=== PATIENT | male | born 1960 | race Caucasian/White ===

== ENCOUNTER 2018-11-18 17:55 | Observation (INO) | payer SELFPAY ==
[2018-11-18] MEDS ORDERED: CEFAZOLIN/SWI 1gm 2 GM/20 ML SYR ONE (18:20)
[2018-11-18] MEDS ORDERED: NA CHLORIDE 0.9% 1,000 ML ONE ×2 (18:25→19:00)
[2018-11-18 18:47] LABS: Absolute Lymphocytes (CBC) 1.1 K/uL (0.7-4.9); Basophils % 0.7 % (0-1.3); Hematocrit 42.8 % (39.6-49.0); Lymphocytes % 12.6 % (15.3-44.8); MPV 8.7 fL (7.6-11.3); RBC Red Blood Cell Count 4.84 M/uL (4.33-5.43)
[2018-11-18 18:51] LABS: Protime INR 1.01
--- NOTE | 2018-11-18 19:02 | RAD REPORT ---
EXAM DESCRIPTION: RAD - Foot Right 3 View - 11/18/2018 6:44 pm CLINICAL HISTORY: laceration injury COMPARISON: <Comparisons> FINDINGS: Comminuted fractures seen involving the proximal phalanx of the second toe in the middle p halanx of the third toe with laceration present. No foreign body visible.
[2018-11-18] MEDS ORDERED: HYDROMORPHONE HCL 1 MG/ML INJ ONE (19:23)
--- NOTE | 2018-11-18 19:28 | EDPHYS ---
Physician Documentation [facility] Name: Elvin Farnsworth Age: 58 yrs Sex: Male : 1960 Arrival Date: 11/18/2018 Time: 18:08 Bed 30 Private MD: ED Physician Gama Mckeon HPI: 11/18 18:20 This 58 yrs old Male presents to ER via EMS with complaints of Foot Injury. cp 18:20 The patient presents with an injury, a laceration. The complaints affect the dorsum of cp right foot. Context: Patient reports he placed circular saw on ground near foot that turned on and cut second and third toes. Onset: The symptoms/episode began/occurred today, about 1500. Treatment prior to arrival includes: wound dressed. Patient reports tetanus up to date within last 1-2 years. Historical: - Allergies: 18:33 No Known Allergies; tr5 - Home Meds: 18:33 None [Active]; tr5 - PMHx: 18:33 Hypertension; tr5 - Immunization history:: Adult Immunizations up to date, Last tetanus immunization: unknown. - Social history:: Smoking status: Patient uses tobacco products, chewing tobacco, Patient uses street drugs, Methamphetamine (Meth). - Ebola Screening: : Patient negative for fever greater than or equal to 101.5 degrees Fahrenheit, and additional compatible Ebola Virus Disease symptoms. ROS: 18:30 Constitutional: Negative for body aches, chills, fever, poor PO intake. cp 18:30 Eyes: Negative for injury, pain, redness, and discharge. cp 18:30 ENT: Negative for drainage from ear(s), ear pain, sore throat, difficulty swallowing, difficulty handling secretions. 18:30 Cardiovascular: Negative for chest pain, palpitations. 18:30 Respiratory: Negative for cough, shortness of breath, wheezing. 18:30 Abdomen/GI: Negative for abdominal pain, vomiting, diarrhea, constipation. 18:30 Back: Negative for pain at rest, pain with movement. 18:30 Skin: Positive for discoloration, laceration(s), of the dorsum of right foot. 18:30 Neuro: Negative for altered mental status, headache, weakness. 18:30 All other systems are negative. Exam: 18:35 Constitutional: The patient appears in no acute distress, alert, awake, cp non-diaphoretic, non-toxic, well developed, well nourished. 18:35 Head/Face: Normocephalic, atraumatic. cp 18:35 Eyes: Periorbital structures: appear normal, Conjunctiva: normal, no exudate, no injection, Lids and lashes: appear normal, bilaterally. 18:35 ENT: External ear(s): are unremarkable, Nose: is normal, Mouth: is normal, Posterior pharynx: is normal, airway is patent, no erythema, no exudate. 18:35 Neck: ROM/movement: is normal, is supple, without pain, no range of motions limitations. 18:35 Chest/axilla: Inspection: normal, Palpation: is normal, no crepitus, no tenderness. 18:35 Cardiovascular: Rate: normal, Rhythm: regular, Heart sounds: murmur, not appreciated, Edema: is not appreciated, JVD: is not appreciated. 18:35 Respiratory: the patient does not display signs of respiratory distress, Respirations: normal, no use of accessory muscles, no retractions, no splinting, no tachypnea, labored breathing, is not present, Breath sounds: are clear throughout, no decreased breath sounds, no stridor, no wheezing. 18:35 Abdomen/GI: Inspection: abdomen appears normal, Bowel sounds: active, all quadrants, Palpation: abdomen is soft and non-tender, in all quadrants, voluntary guarding, is not appreciated, involuntary guarding, is not appreciated, no appreciated organomegaly. 18:35 Musculoskeletal/extremity: Extremities: grossly normal except: noted in the dorsum of right foot: laceration, pain, tenderness, noted across right second and third toes, Pulses: noted to be 2+ in the right dorsalis pedis artery, Perfusion: the extremity is dusky, noted to have sluggish capillary refill, middle and distal phalanx right third toe, the middle and distal phalanx right third toe decreased sensation. 18:35 Neuro: Orientation: to person, place \T\ time. Mentation: is normal. 19:29 ECG was reviewed by the Attending Physician. cp Vital Signs: 16:10 BP 156 / 20; Pulse 75; Resp 16; Temp 98.2(O); Pulse Ox 100% on R/A; Weight 79.38 kg; tr5 Height 5 ft. 5 in. (165.10 cm); 17:00 BP 156 / 112; Pulse 76; Resp 17; Pulse Ox 97% on R/A; tr5 18:00 BP 156 / 120; Pulse 75; Resp 16; Pulse Ox 97% on R/A; tr5 19:14 BP 153 / 94; Pulse 75; Resp 16; Pulse Ox 100% on R/A; tr5 16:10 Body Mass Index 29.12 (79.38 kg, 165.10 cm) tr5 MDM: 18:10 Patient medically screened. cp 18:30 Differential diagnosis: dislocation, open fracture, closed fracture, contusion. cp 19:00 Data reviewed: vital signs, nurses notes, lab test result(s), radiologic studies, plain cp films. 19:00 Test interpretation: by ED physician or midlevel provider: xrays of right foot show cp comminuted fractures of proximal phalanx right second toe and middle phalanx of right third toe. Counseling: I had a detailed discussion with the patient and/or guardian regarding: the historical points, exam findings, and any diagnostic results supporting the discharge/admit diagnosis, radiology results, the need for further work-up and treatment in the hospital. 19:03 Physician consultation: Alvaro Ponce MD was called at 18:55, was contacted at 18:55, regarding patient's condition, and will see patient in ED, shortly, requests OR staff and power house engineer be notified concerning patient and injuries. 19:31 ED course: VSS. Patient examined by DR Mckeon who concurs with foreshortening and cp partial amputation of right third toe. 11/18 18:19 Order name: Basic Metabolic Panel; Complete Time: 16:48 11/18 18:19 Order name: CBC with Diff; Complete Time: 18:54 11/18 18:55 Interpretation: Normal except: LYM% 12.6. 11/18 18:19 Order name: Creatinine for Radiology; Complete Time: 16:48 11/18 18:19 Order name: Type And Screen; Complete Time: 16:48 11/18 18:19 Order name: PT-INR; Complete Time: 18:54 11/18 18:19 Order name: Ptt, Activated; Complete Time: 16:48 11/18 18:19 Order name: Labs collected and sent; Complete Time: 18:28 11/18 18:19 Order name: XRAY Foot RIGHT 3 View; Complete Time: 16:48 cp 11/18 18:54 Order name: EKG; Complete Time: 18:55 cp 11/18 18:54 Order name: EKG - Nurse/Tech; Complete Time: 19:14 cp EC:29 Rate is 68 beats/min. Rhythm is regular. MN interval is normal. QRS interval is normal. cp QT interval is normal. Interpreted by me. Reviewed by me. Administered Medications: 18:28 Drug: Ancef 2 grams Route: IVPB; Infused Over: 30 mins; Site: left antecubital; 19:43 Follow up: Response: No adverse reaction tr5 11/19 01:08 Follow up: Response: No adverse reaction; IV Status: Completed infusion; IV Intake: tr5 100ml 11/18 18:28 Drug: NS 0.9% 1000 ml Route: IV; Rate: 1 bolus; Site: left antecubital; 19:43 Follow up: IV Status: Completed infusion; IV Intake: 1000ml tr5 19:24 Drug: Dilaudid 1 mg {Note: RAAS:0.} Route: IVP; Site: left forearm; tr5 19:42 Follow up: Response: Pain is decreased tr5 19:42 Drug: NS 0.9% 1000 ml Route: IV; Rate: 1 bolus; Site: left forearm; tr5 19:43 Follow up: IV Status: Infusion continued upon transfer tr5 Disposition: 11/18/18 19:26 Hospitalization ordered by Alvaro Ponce for Observation. Preliminary diagnosis are Displaced fracture of medial phalanx of right lesser toe(s) - open, third toe, Displaced fracture of proximal phalanx of right lesser toe(s) - open, second toe. - Bed requested for Operating Room. - Status is Observation. tr5 - Condition is Stable. - Problem is new. - Symptoms have improved. UTI on Admission? No Addendum: 11/19/2018 20:55 Co-signature as Attending Physician, Ankit Villalba MD. r n Signatures: Dispatcher [employer] EDAnkit Clancy MD MD rn Page, Corey, PA PA cp Habalo, Winsy Nav Rizvi RN RN tr5 Corrections: (The following items were deleted from the chart) 11/18 19:29 19:26 Hospitalization Ordered by Alvaro Ponce MD for Observation. Preliminary cp diagnosis is Displaced fracture of medial phalanx of right lesser toe(s) - open, third toe; Displaced fracture of proximal phalanx of right lesser toe(s) - open, second toe. Bed requested for Telemetry/MedSurg (observation). Status is Observation. Condition is Stable. Problem is new. Symptoms have improved. UTI on Admission? No. cp 19:46 19:29 11/18/2018 19:26 Hospitalization Ordered by Alvaro Ponce MD for Observation. tr5 Preliminary diagnosis is Displaced fracture of medial phalanx of right lesser toe(s) - open, third toe; Displaced fracture of proximal phalanx of right lesser toe(s) - open, second toe. Bed requested for Operating Room. Status is Observation. Condition is Stable. Problem is new. Symptoms have improved. UTI on Admission? No. cp
--- NOTE | 2018-11-18 19:28 | ER ---
Nurse's Notes [facility] Name: Elvin Farnsworth Age: 58 yrs Sex: Male : 1960 Arrival Date: 11/18/2018 Time: 18:08 Bed 30 Private MD: Diagnosis: Displaced fracture of medial phalanx of right lesser toe(s)-open, third toe;Displaced fracture of proximal phalanx of right lesser toe(s)-open, second toe Presentation: 11/18 18:00 Presenting complaint: EMS states: pt was using his skill saw and dropped it on his R tr5 foot. He has cuts to his second and third toes. He was give a Camilla 10 at 1545, a dose of dilaudid at 1640 and another dose of dilauted at 1710. Pt reports he does meth and last used this morning. He has a 20 G to L AC. Transition of care: patient was not received from another setting of care. Onset of symptoms was November 18, 2018. Risk Assessment: Do you want to hurt yourself or someone else? Patient reports no desire to harm self or others. Initial Sepsis Screen: Does the patient meet any 2 criteria? No. Patient's initial sepsis screen is negative. Does the patient have a suspected source of infection? No. Patient's initial sepsis screen is negative. Care prior to arrival: Medication(s) given: Camilla 10 X1 and Dilaudid X2. 18:00 Method Of Arrival: EMS: [facility] tr5 18:00 Acuity: LUCINA 2 tr5 Triage Assessment: 19:45 Injury Description: Laceration. tr5 Historical: - Allergies: 18:33 No Known Allergies; tr5 - Home Meds: 18:33 None [Active]; tr5 - PMHx: 18:33 Hypertension; tr5 - Immunization history:: Adult Immunizations up to date, Last tetanus immunization: unknown. - Social history:: Smoking status: Patient uses tobacco products, chewing tobacco, Patient uses street drugs, Methamphetamine (Meth). - Ebola Screening: : Patient negative for fever greater than or equal to 101.5 degrees Fahrenheit, and additional compatible Ebola Virus Disease symptoms. Screenin:10 Abuse screen: Denies threats or abuse. Nutritional screening: No deficits noted. tr5 Tuberculosis screening: No symptoms or risk factors identified. Fall Risk None identified. Assessment: 18:10 General: Appears uncomfortable, Behavior is calm, cooperative, appropriate for age. tr5 Pain: Complains of pain in right foot and right leg Pain does not radiate. Pain currently is 7 out of 10 on a pain scale. Quality of pain is described as aching, Pain began 30 min ago. Neuro: Level of Consciousness is awake, alert, obeys commands, Oriented to person, place, time, Heavy Lift Rigger are equal bilaterally Moves all extremities. Cardiovascular: Heart tones present Capillary refill < 3 seconds Pulses are all present. Respiratory: Airway is patent Respiratory effort is even, unlabored, Respiratory pattern is regular, symmetrical. GI: No signs and/or symptoms were reported involving the gastrointestinal system. : No signs and/or symptoms were reported regarding the genitourinary system. EENT: No signs and/or symptoms were reported regarding the EENT system. Derm: Skin is dry, Skin is normal, Skin temperature is warm Cuts to second and third toes of R foot. Musculoskeletal: Capillary refill < 3 seconds, Range of motion: intact in all extremities. 19:16 Reassessment: Patient appears in no apparent distress at this time. Patient and/or tr5 family updated on plan of care and expected duration. Pain level reassessed. Patient is alert, oriented x 3, equal unlabored respirations, skin warm/dry/pink. Vital Signs: 16:10 BP 156 / 20; Pulse 75; Resp 16; Temp 98.2(O); Pulse Ox 100% on R/A; Weight 79.38 kg; tr5 Height 5 ft. 5 in. (165.10 cm); 17:00 BP 156 / 112; Pulse 76; Resp 17; Pulse Ox 97% on R/A; tr5 18:00 BP 156 / 120; Pulse 75; Resp 16; Pulse Ox 97% on R/A; tr5 19:14 BP 153 / 94; Pulse 75; Resp 16; Pulse Ox 100% on R/A; tr5 16:10 Body Mass Index 29.12 (79.38 kg, 165.10 cm) tr5 ED Course: 16:10 Arm band placed on. tr5 17:15 T\T\S collected, blood band applied to patient. jp3 18:08 Patient arrived in ED. am2 18:08 Gama Wetzel PA is PHCP. cp 18:08 Ankit Villalba MD is Attending Physician. cp 18:10 Bed in low position. Call light in reach. Side rails up X 1. Pulse ox on. NIBP on. tr5 18:10 Inserted saline lock: 20 gauge in right forearm, using aseptic technique. tr5 18:21 Nav Rizvi, RN is Primary Nurse. tr5 18:32 Triage completed. tr5 18:44 XRAY Foot RIGHT 3 View In Process Unspecified. EDIN 19:23 Alvaro Ponce MD is Hospitalizing Provider. cp 19:30 Attending Physician role handed off by Ankit Villalba MD cha 19:30 Gama Mckeon MD is Attending Physician. [facility] 19:45 No provider procedures requiring assistance completed. Patient admitted, IV remains in tr5 place. Administered Medications: 18:28 Drug: Ancef 2 grams Route: IVPB; Infused Over: 30 mins; Site: left antecubital; 19:43 Follow up: Response: No adverse reaction tr5 11/19 01:08 Follow up: Response: No adverse reaction; IV Status: Completed infusion; IV Intake: tr5 100ml 11/18 18:28 Drug: NS 0.9% 1000 ml Route: IV; Rate: 1 bolus; Site: left antecubital; 19:43 Follow up: IV Status: Completed infusion; IV Intake: 1000ml tr5 19:24 Drug: Dilaudid 1 mg {Note: RAAS:0.} Route: IVP; Site: left forearm; tr5 19:42 Follow up: Response: Pain is decreased tr5 19:42 Drug: NS 0.9% 1000 ml Route: IV; Rate: 1 bolus; Site: left forearm; tr5 19:43 Follow up: IV Status: Infusion continued upon transfer tr5 Intake: 19:43 IV: 1000ml; Total: 1000ml. tr5 11/19 01:08 IV: 100ml; Total: 1100ml. tr5 Outcome: 11/18 19:26 Decision to Hospitalize by Provider. cp 19:45 Admitted to OR accompanied by nurse, via stretcher, with chart. tr5 19:45 Condition: stable 19:45 Instructed on the need for admit. 19:46 Patient left the ED. tr5 Signatures: Dispatcher [employer] EDIN Mike, Gama, Gama Ponce MD, cha, PA PA cp Moreno, Amanda am2 Tremaine Roberson Jacob jp3 Nav Rizvi, RN RN tr5
[2018-11-18] MEDS ORDERED: NA CIT/CITRIC AC 30 ML ORAL UDC ONE (19:52)
[2018-11-18] MEDS ORDERED: PROPOFOL 200 MG/20 ML VIAL IV ONE (19:57)
[2018-11-18] MEDS ORDERED: FENTANYL CITR 100 MCG/2 ML ONE (19:58)
[2018-11-18] MEDS ORDERED: LIDOCAINE 1% MPF 5 ML VIAL ONE (19:58)
[2018-11-18] MEDS ORDERED: MIDAZOLAM HCL 2 MG/2 ML INJ ONE (19:58)
[2018-11-18] MEDS ORDERED: ONDANSETRON 4 MG/2 ML VIAL ONE (20:02)
[2018-11-18] MEDS ORDERED: KETOROLAC 30 MG/ML INJ ONE (20:41)
--- NOTE | 2018-11-18 21:26 | P.BOP ---
Preoperative diagnosis: open fx 2nd toe, near amputaion of 3rd toe, saw laceration Postoperative diagnosis: same Primary procedure: Sharp I&D lacration/open fx, completion of amputaion 3rd toe Estimated blood loss: 10 ccs Anesthesia: General Complications: None Transferred to: Recovery Room Condition: Good
[2018-11-18] MEDS ORDERED: Ringers Lactate 1,000 ML IV ONE (21:29)
[2018-11-18] MEDS: MEPERIDINE HCL 25 MG/0.5 ML ONE ×2 (21:45→21:55)
[2018-11-18] MEDS ORDERED: MORPHINE 2 MG/ML SYR IV PRN (22:27)
[2018-11-18] MEDS ORDERED: HYDROCODONE/APAP 5/325 MG TAB PO PRN ×2 (22:32→22:33)
[2018-11-18 22:33] VITALS: BMI 32.1
[2018-11-19] MEDS ORDERED: CEFAZOLIN/NS 1gm 1 GM/50 ML BAG IVPB SCH (01:00)
[2018-11-19 01:08] VITALS: O2SAT 98
[2018-11-19] MEDS ORDERED: CEFAZOLIN/SWI 1gm 1 GM/10 ML SYR ONE (01:13)
[2018-11-19] MEDS: PREGABALIN 75 MG CAP PO SCH ×2 (01:59→09:57)
--- NOTE | 2018-11-19 05:38 | HP ---
Date of Admission: 11/18/2018 History Of Present Illness: This is my first time seeing this patient to my knowledge. He is a 58-y ear-old gentleman who apparently was working with a circular saw today, placed it on the ground, unfo rtunately traveled over his right foot. Despite having shoe on, he had significant pain and problems . He went to an outside facility where he was ruled out for other injuries; however, x-rays were rosa elena en as well as examination which demonstrates loss of a significant amount of the middle phalanx, the third, as well as a fracture of the second. On physical examination, he has a relatively oblique laceration which traverses over the second and t hird toes, directly in line with the fractures. Fortunately, he has not impacted his great toe. Past Medical History: Significant for hypertension. Allergies: HE HAS NO ALLERGIES. Medications: He has no medications listed. Social History: He does use smokeless tobacco. Physical Examination: Benign. On physical examination of his right foot, he does have a relatively long diagonal laceratio n which goes over the dorsum of the foot. The third toe appears to be extremely dusky. He does not appear to have any blood flow to the distal tip. Assessment: A 58-year-old man now with an open fracture of the second and third toe, as well as a la ceration over the dorsum of the foot. DP examination is difficult, but his second extensor tendon is presumed lacerated. All risks, benefits, and alternatives to procedure have been discussed with him and he states he understands things presented and will move forward to going to the operating room f or irrigation and debridement under general anesthesia with exploration. It may be possible that we would repair the extensor tendon of the second toe. However, this may be too disrupted by the circul ar saw. I did discuss with him that apparently, the third toe has no significant vascularity and pro bably the best course of action would be debridement of the bony fragments and skeletal shortening wi th partial amputation of the toe, losing the toe tip, but leaving as much that is possible to avoid d rift if possible. He says that he understands things as presented. GRIFFIN Voice ID: [id number]
[2018-11-19] MEDS ORDERED: METOPROLOL TAR 25 MG TAB PO SCH (06:00)
[2018-11-19 06:14] LABS: Urine Appearance CLEAR; Urine Bilirubin NEGATIVE (NEG); Urine Blood NEGATIVE (NEG); Urine Color YELLOW; Urine Glucose TRACE (NEG); Urine Protein NEGATIVE (NEG); Urine Specific Gravity >=1.030 (1.005-1.030); Urine Urobilinogen 0.2 mg/dL (0.2-1.0)
[2018-11-19 06:37] LABS: Urine Microscopic Reflex ORDER UMIC
[2018-11-19 06:44] LABS: Urine Bacteria <20 /HPF (NONE SEEN); Urine RBC <5 /HPF (NONE SEEN)
[2018-11-19 06:45] LABS: Urine Culture Reflex Order REFLEXED; Urine Mucus 1+ /HPF (NONE SEEN)
--- NOTE | 2018-11-19 07:16 | OP ---
Date of Procedure: 11/18/2018 Surgeon: Alvaro Ponce MD Preoperative Diagnosis: Right foot table saw injury with open fractures of the second and third toe, the third toe being a near-complete amputation. Postoperative Diagnosis: Right foot table saw injury with open fractures of the second and third toe , the third toe being a near-complete amputation. Procedure Performed: 1.Right foot irrigation and debridement of second toe open fracture with closure. 2.Completion of amputation, partial third toe. Estimated Blood Loss: 10 mL. Complications: No complications. Specimen: The toe was sent to pathology. Indications For Operation: Mr. Farnsworth is a 58-year-old male, who unfortunately was injured with a tab le saw that ran over his foot. He was seen at an outside facility where he was ruled out for other i njuries; however, he was transferred from that facility to our facility, seen in the emergency room w here he was again ruled out for other injuries and x-rays were reviewed, which revealed a fracture of the second toe. Also seen is a bone loss and fracture of the third toe. He has a linear laceration in an oblique fashion, which proceed over the second down into the inner web space and over the thir d. On examination, he obviously does have open fractures. The third toe appears avascular and appea rs to be held on simply by some volar skin. The second toe does appear to be vascularized; however, this table saw injury appears to go down to bone. It does appear that the extensor tendon is comprom ised, also may have some degree of nerve compromise. Description Of Procedure: The patient was taken to the operating room and placed in supine position. General anesthesia was obtained by the staff. Following this, a well-padded tourniquet was placed on superior right thigh. Right lower extremity was then prepped and draped in usual sterile fashion with the exception of the use of non-iodine containing liquid scrub as used for open injuries. Follo wing this, the leg was then elevated, but not exsanguinated. Tourniquet was raised. Some light irri gation was used and attention was first turned to the third toe. The third toe was held on only by a volar skin and the tip appears to be completely avascular. Once this is completed, establishing a m ore less [place] appearance with a slightly longer plantar flap, attention was then turned to the s econd toe. The second toe had multiple small pieces of bone, which were debrided as well as some oth er foreign material. The extensor tendon is examined. It does appear to be a segmental loss with we ll over a quarter inch of the extensor tendon appearing to be cut, therefore decision was made to sim ply debride this rather than try to repair the extensor tendon. The foot was then copiously irrigate d with 2 L of sterile saline with intermittent debridement for foreign material. Following this, the laceration including the amputated toe was then closed using nylon sutures. The patient was then pl aced in a well-padded sterile dressing, awakened and taken to the recovery room in good condition. GRIFFIN Voice ID: [id number] Report ID: [id number]
--- NOTE | 2018-11-19 08:21 | P.CNS ---
Date of Consult: 11/18/18 Reason for Consult: Medical management Requesting Physician: Alvaro Ponce Chief Complaint: Right foot injury History of Present Illness: Patient is a 58-year-old gentleman who ended up injuring his foot. He suffered a right foot table-saw injury with open fractures of the second and third toe, the third toe being a near-complete amputation. Patient taken to the operating room by Dr. Ponce for repair. Patient has done well. Patient has a history of crystal meth use. Patient also with a history of hypertension. Patient will be admitted and medically managed. Possible discharge tomorrow if he is doing well with therapy. Allergies No Known Allergies Allergy (Unverified 11/18/18 21:40) Home Medications: NK [No Home Meds] 11/18/18 - Past Medical/Surgical History Diabetic: No -: Hypertension Past Surgical History: Patient denies surgical history - Family History Father Family History: Reviewed- Non-Contributory - Social History Smoking Status: Current some day smoker Alcohol use: Yes CD- Drugs: Yes Caffeine use: Yes Place of Residence: Home Review of Systems 10-point ROS is otherwise unremarkable Physical Examination Temp Pulse Resp BP Pulse Ox 98.0 F 64 18 144/72 H 98 11/19/18 04:00 11/19/18 05:32 11/19/18 06:05 11/19/18 05:32 11/19/18 06:05 General: Alert, In no apparent distress, Oriented x3 HEENT: Atraumatic, PERRLA, Mucous membr. moist/pink, EOMI, Sclerae nonicteric Neck: Supple, 2+ carotid pulse no bruit, No LAD, Without JVD or thyroid abnormality Respiratory: Clear to auscultation bilaterally, Normal air movement Cardiovascular: Regular rate/rhythm, Normal S1 S2, No murmurs Gastrointestinal: Normal bowel sounds, Soft and benign, Non-distended, No tenderness Musculoskeletal: Tenderness, Cast in place (Right foot) Integumentary: Tenderness/swelling, Erythema Neurological: Normal gait, Normal speech, Normal tone, Cranial nerves 3-12 intact, Normal affect, Abnormal strength, Abnormal sensation Lymphatics: No axilla or inguinal lymphadenopathy Laboratory Data (last 24 hrs) 11/18/18 18:25: PT 11.9, INR 1.01, APTT 33.3 11/18/18 18:25: Creatinine 1.24 11/18/18 18:25: WBC 8.5, Hgb 14.8, Hct 42.8, Plt Count 213 11/18/18 18:25: Sodium 145, Potassium 4.0, BUN 19 H, Creatinine 1.20, Glucose 109 H - Problems (1) Right foot injury Current Visit: Yes Status: Acute (2) Hypertension Current Visit: Yes Status: Acute (3) Drug abuse, amphetamine type Current Visit: Yes Status: Acute Conclusions/ Impression: plan: 1. Strict blood pressure control 2. Gentle hydration 3. Monitor for withdrawal symptoms 4. DVT prophylaxis and pain control Critical Care: No Time Spent Managing Pts care (In Minutes): 45
[2018-11-19] MEDS ORDERED: CEFAZOLIN/SWI 1gm 1 GM/10 ML SYR IV SCH (09:00)
[2018-11-19 15:16] VITALS: BP 144/85; TEMP 98.1
--- NOTE | 2018-11-20 18:28 | EKG ---
Test Date: 2018-11-18 Test Time: 19:12:33 Workforce Development Program Director: TR MEASUREMENT RESULTS: Intervals: Rate: 68 AL: 130 QRSD: 84 QT: 416 QTc: 442 [place]: P: 25 AL: 130 QRS: 46 T: 29 INTERPRETIVE STATEMENTS: Normal sinus rhythm Normal ECG No previous ECG available for comparison Electronically Signed On 11-20-18 18:23:19 CDT by Reece Fong
== END 2018-11-19 12:31 | disposition home or self-care (01) ==
LOC: ER 17:55 → ERHOLD 21:05 → INTOOBSV 21:05 → 2ND 22:08
PROVIDERS: ADMIT Orthopaedic Surgery; ATTEND Orthopaedic Surgery
PROC: 0Y6T0Z1 Detachment at Right 3rd Toe, High, Open Approach (ICD-10-PCS; 2018-11-18)
PROC: 0QBQ0ZZ Excision of Right Toe Phalanx, Open Approach (ICD-10-PCS; principal; 2018-11-18 20:00)
DX: S92.501B Displaced unspecified fracture of right lesser toe(s), initial encounter for open fracture (principal); S91.311A Laceration without foreign body, right foot, initial encounter; W29.8XXA Contact with other powered hand tools and household machinery, initial encounter; I10 Essential (primary) hypertension; F15.10 Other stimulant abuse, uncomplicated
CPT/HCPCS: 36415; 80048; 81003; 81015; 85025; 85610; 85730; 86850; 86900; 86901; 87086; 87088; 88302; 88305; 93005; 96365; 96366; 96375; 97116; 97161; 97530; 99285; G0378; J0690; J1170; J2175; J2250; J2405; J2704; J3010; J7030